=== PATIENT | male | born 1995 | race Hispanic/Latino ===

== ENCOUNTER 2024-07-27 00:52 | Emergency (ER) | payer SELFPAY ==
[2024-07-27] MEDS ORDERED: CEPHALEXIN 250 MG CAP ONE (01:43)
[2024-07-27] MEDS ORDERED: BUPIVACAINE 0.5% PF 10 ML VIAL ONE (01:43)
[2024-07-27] MEDS ORDERED: KETOROLAC 30 MG/ML INJ ONE (01:44)
[2024-07-27] MEDS ORDERED: PROMETHAZINE 25 MG TABLET ONE (01:44)
[2024-07-27] MEDS ORDERED: HYDROCODONE/APAP 5/325 MG TAB ONE (01:49)
--- NOTE | 2024-07-27 09:00 | EDPHYS ---
Physician Documentation [facility] Name: Aries Serrano Age: 28 yrs Sex: Male : 1995 Arrival Date: 07/27/2024 Time: 00:52 Bed 5 Private MD: ED Physician Baljit Olivares HPI: 07/27 01:19 This Male presents to ER via Ambulatory with complaints of Toothache. sp4 06:52 28-year-old Bengali-speaking male presents with complaint of a left lower toothache. sp4 Started today.. Historical: - Allergies: 01:14 No Known Allergies; jb4 - PMHx: 01:14 None; jb4 - PSHx: 01:14 None; jb4 - Immunization history:: Adult Immunizations up to date. - Infectious Disease History:: Denies. - Social history:: Smoking status: Patient denies any tobacco usage or history of. Patient uses alcohol, occasionally. - Family history:: not pertinent. ROS: 06:52 Constitutional: Negative for fever, chills, and weight loss, positive left lower sp4 toothache 06:52 All other systems are negative, Exam: 06:52 Constitutional: This is a well developed, well nourished patient who is awake, alert, sp4 and in no acute distress. Head/Face: Normocephalic, atraumatic. Eyes: Pupils equal round and reactive to light, extra-ocular motions intact. Lids and lashes normal. Conjunctiva and sclera are not injected. Cornea within normal limits. Periorbital areas with no swelling, redness, or edema. ENT: Nares patent. No nasal discharge, no septal abnormalities noted. Tympanic membranes are normal and external auditory canals are clear. Oropharynx with no redness, swelling, or masses, exudates, or evidence of obstruction, uvula midline. Mucous membranes moist. Left lower dental structures reveal tooth #18 has a large cavity on the buccal surface with signs of acute pulpitis Neck: Trachea midline, no thyromegaly or masses palpated, and no cervical lymphadenopathy. Supple, full range of motion without nuchal rigidity, or vertebral point tenderness. Chest/axilla: Normal chest wall appearance and motion. Nontender with no deformity. No lesions are appreciated. Cardiovascular: Regular rate and rhythm with a normal S1 and S2. No gallops, murmurs, or rubs. Normal PMI, no JVD. No pulse deficits. Respiratory: Lungs have equal breath sounds bilaterally, clear to auscultation and percussion. No rales, rhonchi or wheezes noted. No increased work of breathing, no retractions or nasal flaring. Abdomen/GI: Soft, with normal bowel sounds. No distension or tympany. No guarding or rebound. No evidence of tenderness throughout. Back: No spinal tenderness. No costovertebral tenderness. Skin: Warm, dry with normal turgor. Normal color with no rashes, no lesions, and no evidence of cellulitis. MS/ Extremity: Pulses equal, no cyanosis. Neurovascular intact. Full, normal range of motion. Neuro: Awake and alert, GCS 15, oriented to person, place, time, and situation. Cranial nerves II-XII grossly intact. Motor strength 5/5 in all extremities. Sensory grossly intact. Psych: Awake, alert, with orientation to person, place and time. Behavior, mood, and affect are within normal limits Vital Signs: 01:22 BP 137 / 90; Pulse 78; Resp 16; Temp 99(O); Pulse Ox 100% on R/A; jb4 02:26 BP 132 / 84; Pulse 76; Resp 16; Temp 98; Pulse Ox 100% on R/A; kj2 [place] Coma Score: 06:52 Eye Response: spontaneous(4). Motor Response: obeys commands(6). Verbal Response: sp4 oriented(5). Total: 15. Procedures: 06:55 Performed Left lower dental block. Left lower dental block accomplished with sp4 bupivacaine 0.5% 10 mL total. MDM: 01:08 Medical Screening Exam initiated sp4 06:56 Differential diagnosis: dental caries, gingivitis, dental abscess, pericoronitis, sp4 aphthous ulcers. Data reviewed: vital signs, nurses notes. ED course: Was strongly recommended to see dentist for dental repair or extraction. Administered Medications: 01:53 Drug: Bupivacaine Infiltration (0.5 %) 10 ml 10 ml Infiltration once {Note: cp4 Administered by provider.} Volume: 10 ml; Route: Infiltration; 02:26 Follow up: Response: No adverse reaction kj2 01:53 Drug: Ketorolac IM 60 mg IM once Route: IM; Site: left deltoid; cp4 02:26 Follow up: Response: No adverse reaction kj2 01:53 Drug: HYDROcodone-acetaminophen PO 5 mg-325 mg 2 tabs PO once Route: PO; cp4 02:25 Follow up: Response: No adverse reaction kj2 01:53 Drug: Promethazine PO 25 mg PO once Route: PO; cp4 02:25 Follow up: Response: No adverse reaction; Nausea is decreased kj2 01:53 Drug: Cephalexin PO 500 mg PO once Route: PO; cp4 02:25 Follow up: Response: No adverse reaction kj2 Disposition Summary: 07/27/24 02:01 Discharge Ordered Notes: Location: Home sp4 Problem: new sp4 Symptoms: have improved sp4 Condition: Stable sp4 Diagnosis - Acute Dental pain, tooth #18 dental cavity, acute pulpitis tooth #18 sp4 Followup: sp4 - With: Osman Bowman DDS - When: 2 - 3 days - Reason: Recheck today's complaints Discharge Instructions: - Discharge Summary Sheet sp4 - Dental Caries, Adult, [id number] sp4 Forms: - Patient Portal Instructions sp4 Prescriptions: - Cephalexin 250 mg Oral Capsule - take 1 capsule ORAL route every 8 hours for 10 days; 30 capsule; Refills: 0, sp4 Product Selection Permitted - Ibuprofen 800 mg Oral Tablet - take 1 tablet ORAL route every 8 hours As needed take with food; 30 tablet; sp4 Refills: 0, Product Selection Permitted - Tramadol 50 mg Oral tablet - take 1 tablet ORAL route every 8 hours as needed; 20 tablet; Refills: 0, sp4 Product Selection Permitted Signatures: Otto Linda RN RN jb4 Baljit Olivares MD MD sp4 Pooja Gardner cp4 Tyesha Richardson RN kj2
--- NOTE | 2024-07-27 09:00 | ER ---
Nurse's Notes [facility] Name: Aries Serrano Age: 28 yrs Sex: Male : 1995 Arrival Date: 07/27/2024 Time: 00:52 Bed 5 Private MD: Diagnosis: Acute Dental pain, tooth #18 dental cavity, acute pulpitis tooth #18 Presentation: 07/27 01:14 Chief complaint: Patient states: I AM HAVING PAIN ON MY BOTTOM LEFT MOLAR. Coronavirus jb4 screen: At this time, the client does not indicate any symptoms associated with coronavirus-19. Ebola Screen: No symptoms or risks identified at this time. Initial Sepsis Screen: Does the patient meet any 2 criteria? No. Patient's initial sepsis screen is negative. Does the patient have a suspected source of infection? No. Patient's initial sepsis screen is negative. Risk Assessment: Do you want to hurt yourself or someone else? Patient reports no desire to harm self or others. Onset of symptoms was July 27, 2024. Transition of care: patient was not received from another setting of care. 01:14 Method Of Arrival: Ambulatory jb4 01:14 Acuity: HAR[place] 4 jb4 Historical: - Allergies: 01:14 No Known Allergies; jb4 - PMHx: 01:14 None; jb4 - PSHx: 01:14 None; jb4 - Immunization history:: Adult Immunizations up to date. - Infectious Disease History:: Denies. - Social history:: Smoking status: Patient denies any tobacco usage or history of. Patient uses alcohol, occasionally. - Family history:: not pertinent. Screenin:[address] [facility] ED Fall Risk Assessment (Adult) History of falling in the last 3 months, cp4 including since admission No falls in past 3 months (0 pts) Confusion or Disorientation No (0 pts) Intoxicated or Sedated No (0 pts) Impaired Gait No (0 pts) Mobility Assist Device Used No (0 pt) Altered Elimination No (0 pt) Score/Fall Risk Level 0 - 2 = Low Risk Oriented to surroundings, Maintained a safe environment, Assessed \T\ reinforced patient's understanding of fall precautions, Hourly rounding (assess needs \T\ fall precautionary measures) done. Abuse screen: Denies threats or abuse. Nutritional screening: No deficits noted. Tuberculosis screening: No symptoms or risk factors identified. Assessment: 01:54 General: Appears in no apparent distress. uncomfortable, Behavior is calm, cooperative, cp4 appropriate for age. Pain: Complains of pain in mouth Pain does not radiate. Pain currently is 10 out of 10 on a pain scale. Neuro: Level of Consciousness is awake, alert, obeys commands, Oriented to person, place, time, situation. Cardiovascular: Patient's skin is warm and dry. Respiratory: Airway is patent Respiratory effort is even, unlabored. GI: No signs and/or symptoms were reported involving the gastrointestinal system. : No signs and/or symptoms were reported regarding the genitourinary system. EENT: Reports toothache. Derm: No signs and/or symptoms reported regarding the dermatologic system. Musculoskeletal: No signs and/or symptoms reported regarding the musculoskeletal system. 02:20 Reassessment: Patient appears in no apparent distress at this time. Patient is alert, kj2 oriented x 3, equal unlabored respirations, skin warm/dry/pink. Vital Signs: 01:22 BP 137 / 90; Pulse 78; Resp 16; Temp 99(O); Pulse Ox 100% on R/A; jb4 02:26 BP 132 / 84; Pulse 76; Resp 16; Temp 98; Pulse Ox 100% on R/A; kj2 [place] Coma Score: 06:52 Eye Response: spontaneous(4). Motor Response: obeys commands(6). Verbal Response: sp4 oriented(5). Total: 15. ED Course: 00:56 Patient arrived in ED. jj6 00:56 Baljit Olivares MD is Attending Physician. sp4 01:14 Triage completed. jb4 01:14 Arm band placed on right wrist. jb4 01:16 Pooja Gardner is Primary Nurse. cp4 01:54 Bed in low position. Call light in reach. Side rails up X 1. Provided Education on: cp4 toothache. 01:54 No provider procedures requiring assistance completed. Patient did not have IV access cp4 during this emergency room visit. 02:00 Osman Bowman DDS is Referral Physician. sp4 Administered Medications: 01:53 Drug: Bupivacaine Infiltration (0.5 %) 10 ml 10 ml Infiltration once {Note: cp4 Administered by provider.} Volume: 10 ml; Route: Infiltration; 02:26 Follow up: Response: No adverse reaction kj2 01:53 Drug: Ketorolac IM 60 mg IM once Route: IM; Site: left deltoid; cp4 02:26 Follow up: Response: No adverse reaction kj2 01:53 Drug: HYDROcodone-acetaminophen PO 5 mg-325 mg 2 tabs PO once Route: PO; cp4 02:25 Follow up: Response: No adverse reaction kj2 01:53 Drug: Promethazine PO 25 mg PO once Route: PO; cp4 02:25 Follow up: Response: No adverse reaction; Nausea is decreased kj2 01:53 Drug: Cephalexin PO 500 mg PO once Route: PO; cp4 02:25 Follow up: Response: No adverse reaction kj2 Medication: 01:54 VIS not applicable for this client. cp4 Outcome: 02:01 Discharge ordered by . sp4 02:27 Discharged to home ambulatory, kj2 02:27 Condition: stable 02:27 Discharge instructions given to patient, Instructed on discharge instructions, follow up and referral plans. medication usage, Demonstrated understanding of instructions, follow-up care, medications, Prescriptions given X 3, 02:28 Patient left the ED. kj2 Signatures: Otto Linda, RN RN jb4 Nae Nieves6 Baljit Olivares MD MD sp4 Pooja Gardner cp4 Tyesha Richardson RN RN kj2
== END 2024-07-27 02:28 | disposition home or self-care (01) ==
LOC: ER 00:52
DX: K02.9 Dental caries, unspecified (principal); K04.01 Reversible pulpitis
CPT/HCPCS: 96372; 99284; Q0169